=== PATIENT | female | born 1990 | race Two or more races ===

== ENCOUNTER 2019-02-02 11:31 | Emergency (ER) | payer BC, OTHER ==
[2019-02-02] MEDS: ONDANSETRON (ODT) 4 MG TAB ODT (15:09)
[2019-02-02] MEDS: MECLIZINE 12.5 MG TAB PO (15:09)
[2019-02-02 15:19] LABS: ADD MAN DIFF? NO
[2019-02-02 15:26] LABS: WHITE BLOOD COUNT 11.6 10^3/ul (4.8-10.8)
[2019-02-02 15:26] LABS: BASOPHIL # 0.1 10^3/ul (0.0-0.1); BASOPHILS % 0.5 % (0.0-2.0); EOSINOPHILS # 0.1 10^3/ul (0.0-0.5); EOSINOPHILS % 0.5 % (0.0-7.0); HEMATOCRIT 42.8 % (37.0-47.0); HEMOGLOBIN 13.4 g/dl (12.0-16.0); LYMPHOCYTES # 2.5 10^3/ul (0.8-2.9); LYMPHOCYTES % 21.7 % (15.0-51.0); MEAN CORPUSCULAR HEMOGLOBIN 26.9 pg (29.0-33.0); MEAN CORPUSCULAR HGB CONC 31.3 g/dl (32.0-37.0); MEAN CORPUSCULAR VOLUME 85.9 fl (82.0-101.0); MONOCYTE # 0.3 10^3/ul (0.3-0.9); MONOCYTES % 2.5 % (0.0-11.0); NEUTROPHIL # 8.6 10^3/ul (1.6-7.5); NEUTROPHILS % 74.2 % (39.0-77.0); PLATELET COUNT 331 10^3/UL (140-415); RED BLOOD COUNT 4.98 10^6/ul (4.20-5.40)
[2019-02-02 15:40] LABS: ALANINE AMINOTRANSFERASE 7 IU/L (13-69); ALBUMIN 4.6 g/dl (3.3-4.9); ALBUMIN/GLOBULIN RATIO 1.12; ALKALINE PHOSPHATASE 67 IU/L (42-121); ANION GAP 9 (5-13); ASPARTATE AMINO TRANSFERASE 18 IU/L (15-46); BILIRUBIN,INDIRECT 0.7 mg/dl (0-1.1); BILIRUBIN,TOTAL 0.7 mg/dl (0.2-1.3); BLOOD UREA NITROGEN 12 mg/dl (7-20); CALCIUM 9.4 mg/dl (8.4-10.2); CARBON DIOXIDE 29 mmol/L (21-31); CHLORIDE 102 mmol/L (97-110); CREATININE 0.59 mg/dl (0.44-1.00); Estimated GFR > 60 mL/min (>60); GLUCOSE 112 mg/dl (70-220); POTASSIUM 4.7 mmol/L (3.5-5.1); SODIUM 140 mmol/L (135-144); TOTAL PROTEIN 8.7 g/dl (6.1-8.1)
== END 2019-02-02 16:36 | disposition home or self-care (01) ==
LOC: FTE 11:31
DX: R11.2 Nausea with vomiting, unspecified (principal); R19.7 Diarrhea, unspecified
CPT/HCPCS: 36415; 80053; 85025; 99283